=== PATIENT | female | born 1980 | race American Indian/Alaskan Native ===

== ENCOUNTER 2017-12-16 23:42 | Emergency (ER) | payer MEDICAID ==
[2017-12-17] MEDS ORDERED: ASPIRIN PO ONE (00:45)
[2017-12-17 00:59] LABS: Basophils % (Auto) 0.4 % (0.0-1.8); Eosinophils # (Auto) 0.7 K/mm3 (0.0-0.4); Eosinophils % (Auto) 8.7 % (0.0-4.3); Hematocrit 34.7 % (30.3-42.9); Hemoglobin 12.5 gm/dl (10.1-14.3); Lymphocytes % (Auto) 25.3 % (13.4-35.0); Mean Corpuscular HGB Conc 36 % (30-34); Mean Corpuscular Hemoglobin 31 pg (28-32); Mean Corpuscular Volume 86 fl (79-97); Monocytes # (Auto) 0.6 K/mm3 (0.0-0.8); Monocytes % (Auto) 7.4 % (0.0-7.3); Platelet Count 392 K/mm3 (140-440); Red Blood Count 4.05 M/mm3 (3.65-5.03); Red Cell Distribution Width 14.6 % (13.2-15.2)
[2017-12-17 01:27] LABS: BUN/Creatinine Ratio 13; Blood Urea Nitrogen 9 mg/dL (7-17); Calcium 9.5 mg/dL (8.4-10.2); Hemolysis Index 2
--- NOTE | 2017-12-17 01:57 | XRay Report ---
FINAL REPORT PROCEDURE: XR CHEST ROUTINE 2V TECHNIQUE: PA and lateral chest radiographs were obtained. HISTORY: Chest pain. COMPARISON: No prior studies are available for comparison. FINDINGS: Heart: Normal. Mediastinum/Vessels: Normal. Lungs/Pleural space: Hyperinflation. Nodule overlying the left lower thorax felt to represent nipple shadow. Bony thorax: No acute osseous abnormality. Moderate dextroscoliotic curvature. Other: IMPRESSION: No radiographic evidence of acute cardiopulmonary disease. Hyperinflation suggests obstructive physiology.
[2017-12-17] MEDS ORDERED: NACL 0.9% 1000 ML 1,000 ML IV ONE (02:48)
[2017-12-17] MEDS ORDERED: PROVENTIL IH ONE (02:49)
[2017-12-17] MEDS ORDERED: BENADRYL IV ONE (02:49)
--- NOTE | 2017-12-17 03:28 | Cat Scan Report ---
FINAL REPORT PROCEDURE: CT ANGIO CHEST TECHNIQUE: Computerized tomographic angiography of the chest was performed after the IV injection of iodinated nonionic contrast including image processing. The image data was postprocessed using 2-dimensional multiplanar reformatted (MPR) and 3-dimensional (MIP and/or volume rendered) techniques. HISTORY: chest pain sob COMPARISON: No prior studies are available for comparison. FINDINGS: Heart and pericardium: Normal. Thoracic aorta: Normal. Pulmonary vasculature: Normal. Lymph nodes: No enlarged thoracic lymph nodes. Lungs: Normal. Pleural space: No effusion, thickening, or pneumothorax. Musculoskeletal structures: No significant abnormality. Upper abdominal structures: No significant abnormality. IMPRESSION: There is no evidence of pulmonary arterial emboli. The lungs are clear without infiltrate, effusion or pneumothorax.
--- NOTE | 2017-12-17 05:20 | Emergency Department Report ---
HPI - General Chief Complaint: Chest Pain Time Seen by Provider: 12/17/17 01:53 - HPI HPI: 37-year-old presents to the ED with chest pain chest pain, onset 1 hour prior to evaluation while at rest, Location: mid chest Radiation: none, Severity now (0-10): 2, Severity at worst (0-10): 8 Duration: 5 minutes characterized as: sharp. The pain is relieved with aspirin, Patient denies exertional pain, patient denies pleuritic pain. Patient denies associated symptoms, such as nausea/vomiting, no diaphoresis, no shortness of breath. Patient also complained of facial pain, congestion, greenish facial discharge for the past 2 days. ED Past Medical Hx - Past Medical History Hx Hypertension: No Hx Heart Attack/AMI: No Hx Congestive Heart Failure: No Hx Diabetes: No Hx Deep Vein Thrombosis: (2010) Hx Pulmonary Embolism: Yes (2010) Hx Liver Disease: No Hx Renal Disease: No Hx Sickle Cell Disease: No Hx Seizures: No Hx Asthma: No Hx COPD: No Hx HIV: No - Surgical History Hx Pacemaker: No Hx Internal Defibrillator: No Additional Surgical History: x 5. tubal ligation - Social History Smoking Status: Current Every Day Smoker Substance Use Type: None, Cocaine - Medications Home Medications: Home Medications Medication Instructions Recorded Confirmed Last Taken Type Ibuprofen [Motrin] 800 mg PO Q8HR PRN #12 tablet 04/26/15 Unknown Rx Amoxicillin/Potassium Clav 1 each PO BID #14 tablet 12/17/17 Unknown Rx [Augmentin 875-125 Tablet] Cetirizine HCl [Zyrtec] 10 mg PO DAILY #30 tablet 12/17/17 Unknown Rx ED Review of Systems ROS: Stated complaint: CHEST PAIN, BURNING FACE AND NUMBNESS Other details as noted in HPI Comment: All other systems reviewed and negative Respiratory: cough Cardiovascular: chest pain Gastrointestinal: denies: nausea, vomiting Physical Exam - Physical Exam Vital Signs: Vital Signs 12/17/17 12/17/17 12/17/17 00:38 03:00 03:14 Temperature 99.4 F Pulse Rate 97 H 62 Respiratory 20 20 20 Rate Blood Pressure 153/98 Blood Pressure 165/96 [Left] O2 Sat by Pulse 99 100 99 Oximetry Physical Exam: - Physical Exam - General Limitations: No Limitations General appearance: alert, in no apparent distress, obese - Head Head exam: Present: atraumatic, normocephalic - Eye Eye exam: Present: normal appearance - ENT ENT exam: Present: Maxillary sinuses tenderness\ - Neck Neck exam: Present: normal inspection - Respiratory Respiratory exam: Present: normal lung sounds bilaterally. Absent: respiratory distress - Cardiovascular Cardiovascular Exam: Present: normal rhythm, normal rate Absent: systolic murmur, diastolic murmur, rubs, gallop - GI/Abdominal GI/Abdominal exam: Present: soft, normal bowel sounds - Extremities Exam Extremities exam: Present: normal inspection - Back Exam Back exam: Present: normal inspection - Neurological Exam Neurological exam: Present: alert, oriented X3 - Psychiatric Psychiatric exam: normal affect and mood - Skin Skin exam: Present: warm, dry, intact, normal color. Absent: rash ED Course Vital Signs 12/17/17 12/17/17 12/17/17 00:38 03:00 03:14 Temperature 99.4 F Pulse Rate 97 H 62 Respiratory 20 20 20 Rate Blood Pressure 153/98 Blood Pressure 165/96 [Left] O2 Sat by Pulse 99 100 99 Oximetry ED Medical Decision Making - Lab Data Result diagrams: 12/17/17 00:48 12/17/17 00:48 Critical care attestation.: If time is entered above; I have spent that time in minutes in the direct care of this critically ill patient, excluding procedure time. ED Disposition Clinical Impression: Cocaine abuse Chest pain Qualifiers: Chest pain type: other chest pain Qualified Code(s): R07.89 - Other chest pain ; R07.8 - Other chest pain Sinusitis Qualifiers: Sinusitis location: maxillary Chronicity: acute Recurrence: non-recurrent Qualified Code(s): J01.00 - Acute maxillary sinusitis, unspecified Disposition: DC-01 TO HOME OR SELFCARE Is pt being admited?: No Does the pt Need Aspirin: No Condition: Stable Instructions: Chest Pain (ED) Prescriptions: Amoxicillin/Potassium Clav [Augmentin 875-125 Tablet] 1 each PO BID #14 tablet Cetirizine HCl [Zyrtec] 10 mg PO DAILY #30 tablet Referrals: PRIMARY CARE, [Primary Care Provider] - 3-5 Days
[2017-12-17 06:16] VITALS: BP 152/83
== END 2017-12-17 06:19 | disposition home or self-care (01) ==
LOC: ED 23:42
DX: J01.00 Acute maxillary sinusitis, unspecified (principal); R07.89 Other chest pain; F14.10 Cocaine abuse, uncomplicated; F17.200 Nicotine dependence, unspecified, uncomplicated
CPT/HCPCS: 36415; 71046; 71275; 80048; 84484; 84703; 85025; 93005; 93010; 96374; 99285; J1200; J7030; Q9967

== ENCOUNTER 2019-12-31 23:57 | Emergency (ER) | payer MEDICAID | END 2020-01-01 02:00 | disposition left against medical advice (07) | LOC: ED 23:57 | DX: F41.9 Anxiety disorder, unspecified (principal); Z53.21 Procedure and treatment not carried out due to patient leaving prior to being seen by health care provider ==